=== PATIENT | male | born 1955 | race Caucasian/White ===

== ENCOUNTER → 2018-08-28 13:20 | Outpatient (CLI) | payer OTHER, MEDICAID ==
[2014-03-29 10:18] VITALS: BMI 26.8
[~2018-08-28 13:20] MED LIST: ASMANEX0.135 GM; BAYER CHEWABLE81 MG PO; GLUCOPHAGE1000 MG PO; GLUCOTROL XL 5 M5 MG PO; NITROQUICK0.4 MG; PLAVIX75 MG PO; TOPROL XL25 MG
== END | disposition home or self-care (01) ==
LOC: D.RT 13:00
PROVIDERS: ATTEND Internal Medicine Pulmonary Disease
DX: J43.9 Emphysema, unspecified (principal)

== ENCOUNTER → 2018-12-22 15:32 | Outpatient (CLI) | payer OTHER, MEDICAID ==
[2014-03-29 10:18] VITALS: BMI 26.8
[2018-12-22 15:54] LABS: BASOPHILS 0.2 % (0-2); EOSINOPHILS 3.7 % (0-7); HEMATOCRIT 30.9 % (42.0-54.0); HEMOGLOBIN 10.4 g/dL (13.5-17.5); IMMATURE GRANULOCYTES 0.4 % (0-5); LYMPHOCYTES 16.2 % (15-50); MCH 30.8 pg (26.0-34.0); MCHC 33.7 g/dL (31.0-37.0); MCV 91.4 fL (80.0-100.0); MEAN PLATELET VOLUME 9.9 fL (7.4-10.4); MONOCYTES 19.3 % (2-11); NEUTROPHILS 60.2 % (40-80); PLATELET COUNT 308 10x3/uL (130-400); RBC 3.38 10x6/uL (4.20-6.10); RDW 16.1 % (11.5-14.5); WBC 4.9 10x3/uL (4.8-10.8)
[2018-12-22 16:13] LABS: ALBUMIN 3.6 g/dL (3.4-5.0); ANION GAP 16.2 mmol/L (8-16); BILIRUBIN - TOTAL 0.43 mg/dL (0.2-1.3); CALCIUM 9.5 mg/dL (8.5-10.1); CARBON DIOXIDE 26.9 mmol/L (21.0-32.0); CREATININE - SERUM 1.1 mg/dL (0.6-1.3); MAGNESIUM - SERUM 1.4 mg/dL (1.8-2.4); POTASSIUM - SERUM 5.1 mmol/L (3.5-5.1); PROTEIN - SERUM 7.5 g/dL (6.4-8.2)
== END | disposition home or self-care (01) ==
LOC: D.LABREF 15:32
DX: J44.9 Chronic obstructive pulmonary disease, unspecified (principal); C34.82 Malignant neoplasm of overlapping sites of left bronchus and lung; E11.42 Type 2 diabetes mellitus with diabetic polyneuropathy

== ENCOUNTER → 2020-10-03 15:58 | Outpatient (CLI) | payer MEDICARE, MEDICAID ==
[2014-03-29 10:18] VITALS: BMI 26.8
[2020-10-03 16:51] LABS: BASOPHILS 1.2 % (0-2); EOSINOPHILS 0.1 % (0-7); HEMATOCRIT 28.2 % (42.0-54.0); LYMPHOCYTE ABS# 1.09 10x3/uL (1.32-3.57); MCH 31.4 pg (26.0-34.0); MCHC 31.9 g/dL (31.0-37.0); MCV 98.3 fL (80.0-100.0); MONOCYTES 0.6 % (2-11); NEUTROPHIL ABS# 6.48 10x3/uL (1.78-5.38); NEUTROPHILS 83.1 % (40-80); RBC 2.87 10x6/uL (4.20-6.10); RDW 16.8 % (11.5-14.5); WBC 7.8 10x3/uL (4.8-10.8)
[2020-10-03 16:54] LABS: PLATELET COUNT 552 10x3/uL (130-400)
[2020-10-03 17:11] LABS: ALBUMIN 3.2 g/dL (3.4-5.0); ANION GAP 14.7 mmol/L (8-16); BILIRUBIN - TOTAL 0.34 mg/dL (0.2-1.3); CALCIUM 9.6 mg/dL (8.5-10.1); CARBON DIOXIDE 29.5 mmol/L (21.0-32.0); CREATININE - SERUM 1.2 mg/dL (0.6-1.3); POTASSIUM - SERUM 4.2 mmol/L (3.5-5.1); PROTEIN - SERUM 8.1 g/dL (6.4-8.2)
== END | disposition home or self-care (01) ==
LOC: D.LABREF 15:58
DX: C34.12 Malignant neoplasm of upper lobe, left bronchus or lung (principal); C77.1 Secondary and unspecified malignant neoplasm of intrathoracic lymph nodes; I25.10 Atherosclerotic heart disease of native coronary artery without angina pectoris